=== PATIENT | female | born 1975 | race African-American/Black ===

== ENCOUNTER 2016-09-27 13:40 | Emergency (ER) | payer SELFPAY ==
[~2016-09-27] VITALS: Ht 162.6 cm; Wt 72.6 kg
[2016-09-27 15:07] VITALS: BP 110/88
[2016-09-27] MEDS ORDERED: IBUPROFEN 600 MG TAB PO ONE (15:30)
== END 2016-09-27 15:36 | disposition home or self-care (01) ==
LOC: ER 13:40
DX: L02.811 Cutaneous abscess of head [any part, except face] (principal)
CPT/HCPCS: 10060